=== PATIENT | female | born 1965 | race Caucasian/White ===

== ENCOUNTER 2016-04-20 09:57 | Emergency (ER) | payer SELFPAY ==
[2016-04-20] MEDS ORDERED: LIDOCAINE 5% (700 MG) TRANSDERMAL ADH..PATCH TP ONE (10:18)
[2016-04-20] MEDS ORDERED: ALBUTEROL SULFATE HFA (90 MCG/PUFF) 8 GM MDI (1 MDI/ER DISP) IH ONE (10:19)
[2016-04-20] MEDS ORDERED: PREDNISONE 20 MG TABLET PO ONE (10:19)
[2016-04-20] MEDS ORDERED: IPRATROPIUM/ALBUTEROL 0.5-2.5 MG/3 ML AMPUL NEB ONE (10:19)
--- NOTE | 2016-04-20 11:25 | ER Document Report ---
ED General - General Chief Complaint: Cough Stated Complaint: BREATHING ISSUES TRAVEL OUTSIDE OF THE [place] IN LAST 30 DAYS: No - HPI Patient complains to provider of: cough left upper back pain Notes: Patient coming in for evaluation cough ongoing for last 2 days. Patient states that showed a coughing spell earlier this morning and now has left upper mid back pain that is worse when she coughs and also worse when she moves. Patient denies any trauma patient is a half a pack smoker patient denies any other past medical denies fevers chills nausea vomiting recent travel recent antibiotics - Related Data Allergies/Adverse Reactions: acetaminophen [From Percocet] Allergy (Verified 04/20/16 10:03) oxycodone [From Percocet] Allergy (Verified 04/20/16 10:03) Past Medical History - Social History Smoking Status: Current Every Day Smoker Chew tobacco use (# tins/day): No Frequency of alcohol use: Occasional Drug Abuse: None Family History: None Patient has suicidal ideation: No Patient has homicidal ideation: No Review of Systems - Review of Systems Constitutional: No symptoms reported EENT: No symptoms reported Cardiovascular: No symptoms reported Respiratory: Cough Gastrointestinal: No symptoms reported Genitourinary: No symptoms reported Female Genitourinary: No symptoms reported Musculoskeletal: Back pain - Left upper mid back pain Skin: No symptoms reported Hematologic/Lymphatic: No symptoms reported Neurological/Psychological: No symptoms reported -: Yes All other systems reviewed and negative Physical Exam - Vital signs Vitals: Pulse Resp BP Pulse Ox 97 20 142/83 H 98 04/20/16 10:05 04/20/16 10:05 04/20/16 10:05 04/20/16 10:05 Interpretation: Normal - General General appearance: Appears well, Alert - HEENT Head: Normocephalic, Atraumatic Eyes: Normal Pupils: PERRL - Respiratory Respiratory status: No respiratory distress Chest status: Nontender Breath sounds: Wheezing - Finally wheeze left side Chest palpation: Normal - Cardiovascular Rhythm: Regular Heart sounds: Normal auscultation Murmur: No - Abdominal Inspection: Normal Distension: No distension Bowel sounds: Normal Tenderness: Nontender Organomegaly: No organomegaly - Back Back: Normal, Tender - Patient with tenderness to palpation of the left upper back midthoracic spine no signs of trauma no rashes no abrasions. Palpation is reproduced patient tenderness. - Extremities General upper extremity: Normal inspection, Nontender, Normal color, Normal ROM , Normal temperature General lower extremity: Normal inspection, Nontender, Normal color, Normal ROM , Normal temperature, Normal weight bearing. No: Earnestine's sign - Neurological Neuro grossly intact: Yes Cognition: Normal Orientation: AAOx4 Alba Coma Scale Eye Opening: Spontaneous Matthew Coma Scale Verbal: Oriented Alba Coma Scale Motor: Obeys Commands Alba Coma Scale Total: 15 Speech: Normal Motor strength normal: LUE, RUE, LLE, RLE Sensory: Normal - Psychological Associated symptoms: Normal affect, Normal mood - Skin Skin Temperature: Warm Skin Moisture: Dry Skin Color: Normal Course - Re-evaluation Re-evalutation: 04/20/16 12:02 Patient's examination shows muscle skeletal left upper back pain. Chest x-ray is negative for any acute pathology. Patient more likely has a bronchitis will likely environmentals patient smokes. Patient will be treated with acute dose of steroids and bronchodilators. Patient was offered Tessalon Perles and Lidoderm patches for her pain and cough. Patient was also encouraged to use honey at home Tylenol Motrin for her upper back pain. Otherwise no critical etiology seen patient discharged home - Vital Signs Vital signs: Temp Pulse Resp BP Pulse Ox 98.1 F 87 16 138/80 H 100 04/20/16 11:36 04/20/16 11:36 04/20/16 11:36 04/20/16 11:36 04/20/16 11:36 Discharge - Discharge Clinical Impression: Cough Back pain Qualifiers: Back pain location: thoracic back pain Chronicity: acute Back pain laterality: left Qualified Code(s): M54.6 - Pain in thoracic spine Condition: Good Disposition: HOME, SELF-CARE Instructions: Cough Suppressant & Expectorant Medications, Bronchitis ([facility]), Inhaled Bronchodilators ([facility]) Additional Instructions: Stop smoking There examination today is consistent with muscle strain more likely due from coughing. Your chest x-ray is normal. You may be developing a slight case of bronchitis. Treatment for bronchitis is bronchodilators and steroid medication. Will give a prescription for steroids for the next 2 days. This will be 3 days total of steroid medication. I recommend using the inhaler 2 puffs every 4 hours to aid in breathing. Also recommend to try Tessalon Perles for cough suppression. Also try [id number] cough suppression medication. I also recommend trying honey with tea. The pain in the back likely from muscle strain. Continue to apply ice heat take Tylenol Motrin may also use Lidoderm patch provided. It will take approximately 5-7 days for this pain to go away. Return to ER symptoms worsen. Follow-up with your primary care physician. Prescriptions: Benzonatate [Tessalon Perle 100 mg Capsule] 100 mg PO Q8HP PRN #21 cap PRN Reason: Lidocaine [Lidoderm 5% (700 mg) Transdermal Patch] 1 patch TP DAILY #10 adh..patch Prednisone [Deltasone 20 mg Tablet] 3 tab PO DAILY 2 Days Forms: Smoking Cessation Education, Return to Work
[2016-04-20 11:37] VITALS: BP 138/80
== END 2016-04-20 11:36 | disposition home or self-care (01) ==
LOC: ER 09:57 → EDBD 09:57 → ER 11:36
DX: M54.6 Pain in thoracic spine (principal); R05 Cough; F17.210 Nicotine dependence, cigarettes, uncomplicated; Z88.6 Allergy status to analgesic agent
CPT/HCPCS: 94640; 99283; 71020; J7512; J3490; J7620

== ENCOUNTER 2017-03-15 16:06 | Emergency (ER) | payer OTHER | END 2017-03-15 16:25 | disposition left against medical advice (07) | LOC: ER 16:06 | DX: Z53.9 Procedure and treatment not carried out, unspecified reason (principal); M25.512 Pain in left shoulder ==

== ENCOUNTER 2017-10-18 12:08 | Emergency (ER) | payer OTHER ==
[2017-10-18] MEDS ORDERED: ONDANSETRON 4 MG TAB.RAPDIS PO ONE (13:15)
[2017-10-18] MEDS ORDERED: FENTANYL CITRATE INJ/PF 100 MCG/2 ML AMPUL IV ONE (13:15)
--- NOTE | 2017-10-18 13:17 | ER Document Report ---
ED Medical Screen (RME) - General Chief Complaint: Abdominal Pain Stated Complaint: RIGHT SIDE PAIN, NAUSEA Time Seen by Provider: 10/18/17 13:10 Notes: RAPID MEDICAL EVALUATION DISCLOSURE I have seen this patient as part of a Rapid Medical Evaluation and, if applicable, placed any initially appropriate orders. The patient will be seen and fully evaluated, including a full history and physical exam, by a provider ( in Main ED or Fast Track) when a room becomes available. 52-year-old female here with complaints of right lower quadrant abdominal pain nausea vomiting low-grade fever that started yesterday and has progressively worsened since then. Pain is worse with walking and movement. Pain is improved with sitting still. She has not taken anything other than MiraLAX and Gas-X for the symptoms. She denies any dysuria frequency. She is concerned she may have appendicitis. EXAM Minimally tachycardic Minimal suprapubic TTP Moderate RLQ TTP No peritoneal signs TRAVEL OUTSIDE OF THE [place] IN LAST 30 DAYS: No - Related Data Allergies/Adverse Reactions: oxycodone [From Percocet] Allergy (Verified 10/18/17 13:15) Past Medical History - Social History Chew tobacco use (# tins/day): No Frequency of alcohol use: None Drug Abuse: None Renal/ Medical History: Denies: Hx Peritoneal Dialysis Psychiatric Medical History: Reports: Hx Depression - Immunizations Hx Diphtheria, Pertussis, Tetanus Vaccination: Yes History of Influenza Vaccine for 01/2017 - 06/2017 Season: No Physical Exam - Vital signs Vitals: Temp Pulse Resp BP Pulse Ox 98.8 F 106 H 18 139/83 H 97 10/18/17 12:21 10/18/17 12:10/18/17 12:10/18/17 12:10/18/17 12:21 Course - Vital Signs Vital signs: Temp Pulse Resp BP Pulse Ox 98.8 F 106 H 18 139/83 H 97 10/18/17 12:21 10/18/17 12:21 10/18/17 12:21 10/18/17 12:21 10/18/17 12:21
[2017-10-18 13:57] LABS: ABSOLUTE BASOPHILS # (AUTO) 0.1 10^3/uL (0.0-0.2); ABSOLUTE EOSINOPHILS # (AUTO) 0.2 10^3/uL (0.0-0.6); ABSOLUTE LYMPHOCYTES (AUTO) 2.2 10^3/uL (0.5-4.7); ABSOLUTE MONOCYTES (AUTO) 0.6 10^3/uL (0.1-1.4); ABSOLUTE NEUT (AUTO) 8.3 10^3/uL (1.7-8.2); EOSINOPHILS % (AUTO) 1.5 % (0-6); HEMOGLOBIN 13.4 g/dL (12.0-15.5); LYMPHOCYTES % (AUTO) 19.5 % (13-45); MEAN CORPUSCULAR HEMOGLOBIN 30.1 pg (27.0-33.4); MEAN CORPUSCULAR HGB CONC 34.3 g/dL (32.0-36.0); MEAN CORPUSCULAR VOLUME 88 fl (80-97); MONOCYTES % (AUTO) 5.5 % (3-13); PLATELET COUNT 306 10^3/uL (150-450); RED BLOOD COUNT 4.44 10^6/uL (3.72-5.28); RED CELL DISTRIBUTION WIDTH 14.8 % (11.5-14.0); SEGMENTED NEUTROPHILS % (AUTO) 72.5 % (42-78); TOTAL CELLS COUNTED % (AUTO) 100 %; WHITE BLOOD COUNT 11.5 10^3/uL (4.0-10.5)
[2017-10-18 14:07] LABS: APPEARANCE,URINE SLIGHTLY-CLOUDY; BILIRUBIN,URINE NEGATIVE (NEGATIVE); COLOR,URINE YELLOW; GLUCOSE, URINE NEGATIVE (NEGATIVE); KETONES,URINE TRACE mg/dL (NEGATIVE); LEUKOCYTE ESTERASE,URINE NEGATIVE (NEGATIVE); NITRITE,URINE POSITIVE (NEGATIVE); PROTEIN,URINE NEGATIVE (NEGATIVE); URINE SPECIFIC GRAVITY 1.021
[2017-10-18 14:12] LABS: ALANINE AMINOTRANSFERASE 23 U/L (9-52); ALBUMIN 4.4 g/dL (3.5-5.0); ALKALINE PHOSPHATASE 90 U/L (38-126); ANION GAP 10 (5-19); ASPARTATE AMINO TRANSFERASE 29 U/L (14-36); BILIRUBIN,DIRECT 0.4 mg/dL (0.0-0.4); BILIRUBIN,TOTAL 0.6 mg/dL (0.2-1.3); BLOOD UREA NITROGEN 13 mg/dL (7-20); CALCIUM 9.5 mg/dL (8.4-10.2); CARBON DIOXIDE 27 mmol/L (22-30); CHLORIDE 105 mmol/L (98-107); GLUCOSE 92 mg/dL (75-110); LIPASE 50.6 U/L (23-300); SODIUM 142.2 mmol/L (137-145); TOTAL PROTEIN 7.4 g/dL (6.3-8.2)
--- NOTE | 2017-10-18 15:13 | RADIOLOGY REPORT (SQ) ---
EXAM DESCRIPTION: CT ABD/PELVIS WITH IV ONLY COMPLETED DATE/TIME: 10/18/2017 2:44 pm REASON FOR STUDY: n/v RLQ TTP; eval appendicitis COMPARISON: None. TECHNIQUE: CT scan of the abdomen and pelvis performed using helical scanning technique with dynamic intravenous contrast injection. No oral contrast. Images reviewed with lung, soft tissue, and bone windows. Reconstructed coronal and sagittal MPR images reviewed. Delayed images for evaluation of the urinary system also acquired. All images stored on PACS. All CT scanners at this facility use dose modulation, iterative reconstruction, and/or weight based d osing when appropriate to reduce radiation dose to as low as reasonably achievable (ALARA). [facility]: Dose Right [facility]: CareDose [facility]: Dose Right [facility]: Teradose 4D [facility]: ditlo CONTRAST TYPE AND DOSE: contrast/concentration: Isovue 370.00 mg/ml; Total Contrast Delivered: 100.0 ml; Total Saline Delivered: 58.0 ml RENAL FUNCTION: Creatinine -0.59 BUN=13 RADIATION DOSE: CT Rad equipment meets quality standard of care and radiation dose reduction techniq ues were employed. CTDIvol: 14.9 - 18.6 mGy. DLP: 1911 mGy-cm.. LIMITATIONS: None. FINDINGS: LOWER CHEST: No significant findings. No nodules or infiltrates. LIVER: Too small to characterize hypoattenuated left hepatic lobe and dome of the liver lesions, may be on a benign basis. No dilated ducts. The hepatic and portal veins are patent. SPLEEN: Normal size. No focal lesions. PANCREAS: No masses. No significant calcifications. No adjacent inflammation or peripancreatic fluid collections. Pancreatic duct not dilated. GALLBLADDER: No identified stones by CT criteria. No inflammatory changes to suggest cholecystitis. ADRENAL GLANDS: No significant masses or asymmetry. RIGHT KIDNEY AND URETER: No solid masses. No significant calcifications. No hydronephrosis or hyd roureter. LEFT KIDNEY AND URETER: No solid masses. No significant calcifications. No hydronephrosis or hydr oureter. AORTA AND VESSELS: No aneurysm. No dissection. Renal arteries, SMA, celiac without stenosis. RETROPERITONEUM: No retroperitoneal adenopathy, hemorrhage or masses. BOWEL AND PERITONEAL CAVITY: Colonic diverticulosis. There is thickening of the wall of some proxim al-mid sigmoid colon. The surrounding perisigmoid colon fat is hazy and soft tissue stranding is pre sent. No evidence of abscess. No free fluid. APPENDIX: Normal. PELVIS: Prior hysterectomy. Small hypoattenuated structures in the adnexal regions may represent ov luis follicles. No free fluid. Normal bladder. ABDOMINAL WALL: Bilateral small fat containing inguinal hernias. BONES: Degenerative mild to moderate disc disease at L5-S1. OTHER: No other significant finding. IMPRESSION: 1 Colonic diverticulosis. The constellation of findings as detailed above suggest colon ic diverticulitis. No evidence of abscess. 2. Several too small to characterize hypoattenuated hepatic lesions, maybe on a benign basis. 3. Additional findings as above. COMMENT: 1. The results of this examination were discussed with the emergency department provider on 10/18/2017 at 15:06 hours. TECHNICAL DOCUMENTATION: JOB ID: [id number] Quality ID # [id number]: Final reports with documentation of one or more dose reduction techniques (e.g., Au tomated exposure control, adjustment of the mA and/or kV according to patient size, use of iterative reconstruction technique) 2010 [employer]- All Rights Reserved Reading location - IP/workstation name: [email or web address]
[2017-10-18] MEDS ORDERED: KETOROLAC TROMETHAMINE INJ/PF 30 MG/1 ML SDV IV ONE (15:55)
--- NOTE | 2017-10-18 15:59 | ER Document Report ---
ED GI/ - General Chief Complaint: Abdominal Pain Stated Complaint: RIGHT SIDE PAIN, NAUSEA Time Seen by Provider: 10/18/17 13:10 Mode of Arrival: Ambulatory Information source: Patient Notes: Patient is a 52-year-old female who presents to the ER today for bloating sensation and lower abdominal pain worse in the right lower quadrant since last night. Patient admits to nausea but no vomiting. She states that she took some MiraLAX for her bloating symptoms thinking that it was just gas or constipation, did have a large bowel movement which actually made her lower abdominal pain worse. Patient is very concerned about appendicitis today. Patient also admits to some lower back pain, worse on the left side. She denies any fevers or chills. TRAVEL OUTSIDE OF THE [place] IN LAST 30 DAYS: No - Related Data Allergies/Adverse Reactions: oxycodone [From Percocet] Allergy (Verified 10/18/17 13:15) Past Medical History - General Information source: Patient - Social History Smoking Status: Current Every Day Smoker Chew tobacco use (# tins/day): No Frequency of alcohol use: None Drug Abuse: None Family History: None Patient has suicidal ideation: No Patient has homicidal ideation: No Renal/ Medical History: Denies: Hx Peritoneal Dialysis Psychiatric Medical History: Reports: Hx Depression - Immunizations Hx Diphtheria, Pertussis, Tetanus Vaccination: Yes Review of Systems - Review of Systems Constitutional: No symptoms reported EENT: No symptoms reported Cardiovascular: No symptoms reported Respiratory: No symptoms reported Gastrointestinal: See HPI Genitourinary: See HPI Female Genitourinary: No symptoms reported Musculoskeletal: No symptoms reported Skin: No symptoms reported Hematologic/Lymphatic: No symptoms reported Neurological/Psychological: No symptoms reported Physical Exam - Vital signs Vitals: Temp Pulse Resp BP Pulse Ox 98.8 F 106 H 18 139/83 H 97 10/18/17 12:21 10/18/17 12:21 10/18/17 12:21 10/18/17 12:21 10/18/17 12:21 - Notes Notes: PHYSICAL EXAMINATION: GENERAL: Mildly uncomfortable appearing, but in no acute distress. HEAD: Atraumatic, normocephalic. EYES: Pupils equal round and reactive to light, extraocular movements intact, sclera anicteric, conjunctiva are normal. NECK: Normal range of motion, supple without lymphadenopathy LUNGS: CTAB and equal. No wheezes rales or rhonchi. HEART: Regular rate and rhythm without murmurs ABDOMEN: Soft, left lower quadrant tenderness. No guarding, no rebound BACK: no vertebral tenderness, normal ROM GI/: no CVA tenderness EXTREMITIES: Normal range of motion, no pitting edema. No cyanosis. NEUROLOGICAL: Cranial nerves grossly intact. Normal sensory/motor exams. PSYCH: Normal mood, normal affect. SKIN: Warm, Dry, normal turgor, no rashes or lesions noted Course - Re-evaluation Re-evalutation: 10/18/17 18:47 Patient has a urinalysis positive for nitrites and blood, complains of some left flank pain although nontender to exam, CT ordered in triage today to rule out appendicitis actually reports a normal appendix but signs of diverticulitis , which explains her tenderness to the left lower quadrant for me today. Patient actually had no right lower quadrant tenderness for me today. Patient was started on Cipro and Flagyl which will cover her UTI as well as her diverticulitis. Patient has no history of diverticulitis. I did also provide her with a diet of things to stay away from with diverticulitis. She is afebrile here with normal vital signs. - Vital Signs Vital signs: Temp Pulse Resp BP Pulse Ox 100.1 F 93 16 138/78 H 97 10/18/17 16:09 10/18/17 16:09 10/18/17 16:09 10/18/17 16:09 10/18/17 16:09 - Laboratory Result Diagrams: 10/18/17 13:30 10/18/17 13:30 Laboratory results interpreted by me: 10/18/17 10/18/17 13:30 13:30 WBC 11.5 H RDW 14.8 H Absolute Neutrophils 8.3 H Urine Ketones TRACE H Urine Blood SMALL H Urine Nitrite POSITIVE H Urine Urobilinogen 2.0 H Discharge - Discharge Clinical Impression: Acute diverticulitis UTI (urinary tract infection) Qualifiers: Urinary tract infection type: site unspecified Hematuria presence: with hematuria Qualified Code(s): N39.0 - Urinary tract infection, site not specified Condition: Stable Disposition: HOME, SELF-CARE Instructions: Diverticulitis ([facility]), Urinary Tract Infection ([facility]) Additional Instructions: Return immediately for any new or worsening symptoms. Follow up with primary care provider, call tomorrow to make followup appointment. What foods aggravate diverticulosis? Foods that are high in insoluble fiber are: * whole wheat bread and baked goods. * wheat bran. * whole grain breads. * vegetables and fruits, especially the skins. * peanuts. * Dawson nuts. * popcorn. * brown rice. Prescriptions: Ciprofloxacin HCl [Cipro 500 mg Tablet] 500 mg PO BID #20 tablet Ibuprofen [Motrin 800 mg Tablet] 800 mg PO Q8H PRN #30 tab PRN Reason: Metronidazole [Flagyl 500 mg Tablet] 500 mg PO Q6H #28 tablet Ondansetron [Zofran Odt 4 mg Tablet] 1 - 2 tab PO Q4H PRN #30 tab.rapdis PRN Reason: For Nausea/Vomiting Referrals: MARIBEL JONES MD [Primary Care Provider] - Follow up as needed
[2017-10-18 16:10] VITALS: BP 138/78
== END 2017-10-18 16:13 | disposition home or self-care (01) ==
LOC: ER 12:08
DX: K57.92 Diverticulitis of intestine, part unspecified, without perforation or abscess without bleeding (principal); N39.0 Urinary tract infection, site not specified; R10.31 Right lower quadrant pain; R11.0 Nausea; M54.5 Low back pain; F17.200 Nicotine dependence, unspecified, uncomplicated
CPT/HCPCS: 99284; 96374; 36415; 83690; 85025; 80053; 81001; 74177; S0119; J1885